=== PATIENT | male | born 1980 | race Two or more races ===

== ENCOUNTER 2023-08-17 19:08 | Emergency (ER) | payer MEDICAID, OTHER ==
[~2023-08-17] VITALS: Ht 175.3 cm; Wt 80.6 kg
[2023-08-17 19:08] VITALS: BP 144/86; PULSE 111
[2023-08-18] MEDS: cefTRIAXone SOD 1,000 MG VL IM ONE (02:24)
[2023-08-18 02:25] VITALS: RESP 20; O2SAT 99
[2023-08-18] MEDS ORDERED: CLIN1CAP70 PO (02:30)
== END 2023-08-18 02:50 | disposition home or self-care (01) ==
LOC: ER 19:08
DX: S50.852A Superficial foreign body of left forearm, initial encounter (principal); F17.210 Nicotine dependence, cigarettes, uncomplicated; Z79.2 Long term (current) use of antibiotics; W45.8XXA Other foreign body or object entering through skin, initial encounter; Y93.89 Activity, other specified; Y92.89 Other specified places as the place of occurrence of the external cause; Y99.8 Other external cause status
CPT/HCPCS: 73090; 96372; 99283; J0696